=== PATIENT | female | born 1940 ===

== ENCOUNTER → 2020-02-10 13:50 | Outpatient (BNVA) | payer MEDICARE, BC, SELFPAY | PROVIDERS: PCP Internal Medicine; Referring Provider Internal Medicine; Visit Provider Physician Assistant | DX: I48.92 Unspecified atrial flutter (principal); Z45.018 Encounter for adjustment and management of other part of cardiac pacemaker; Z79.01 Long term (current) use of anticoagulants | CPT/HCPCS: 93280; 99201; 99202 ==

== ENCOUNTER 2021-06-14 14:33 | Outpatient (CLI) | payer MEDICARE, BC, SELFPAY ==
--- NOTE | 2021-06-14 14:45 | RT.EKG_ITS ---
APPROVED REPORT Exam: Resting ECG Reason for Exam: afib Patient Location: O HR:80 bpm ECG Measurements Heart Rate 80 AXIS [place] [id number] P [id number] QRSd 155 QRS -66 QT 473 T 83 QTc 546 Conclusion Afib/flut and V-paced complexes...other complexes, A-rate>240 No further analysis attempted due to paced rhythm
== END 2021-06-14 14:34 | disposition home or self-care (01) ==
LOC: DI.CARD 14:47
PROVIDERS: PCP Internal Medicine; Referring Provider Internal Medicine; Visit Provider Physician Assistant
DX: I48.20 Chronic atrial fibrillation, unspecified (principal)
CPT/HCPCS: 93010

== ENCOUNTER → 2021-06-14 14:33 | Outpatient (BNVA) | payer MEDICARE, BC, SELFPAY | PROVIDERS: PCP Internal Medicine; Referring Provider Internal Medicine; Visit Provider Physician Assistant | DX: Z95.0 Presence of cardiac pacemaker (principal); I48.20 Chronic atrial fibrillation, unspecified | CPT/HCPCS: 93005; 93280 ==

== ENCOUNTER → 2022-07-11 14:29 | Outpatient (BNVA) | payer MEDICARE, BC, SELFPAY | PROVIDERS: PCP Internal Medicine; Visit Provider Physician Assistant | DX: Z45.010 Encounter for checking and testing of cardiac pacemaker pulse generator [battery] (principal); Z79.01 Long term (current) use of anticoagulants; I48.20 Chronic atrial fibrillation, unspecified | CPT/HCPCS: 93280; 99212; 99213 ==

== ENCOUNTER 2024-07-15 07:59 | Outpatient (CLI) | payer MEDICARE, BC, SELFPAY ==
--- NOTE | 2024-07-15 07:45 | RT.EKG_ITS ---
APPROVED REPORT Exam: Resting ECG Reason for Exam: afib Patient Location: O HR:87 bpm ECG Measurements Heart Rate 87 AXIS TN [id number] P [id number] QRSd 157 QRS -72 QT 415 T 88 QTc 500 Conclusion Afib/flut and V-paced complexes...other complexes, A-rate>240 No further analysis attempted due to paced rhythm
== END 2024-07-15 08:00 | disposition home or self-care (01) ==
LOC: DI.CARD 07:59
PROVIDERS: PCP Family Medicine; Visit Provider Student in an Organized Health Care Education/Training Program
DX: I48.20 Chronic atrial fibrillation, unspecified (principal)
CPT/HCPCS: 93010

== ENCOUNTER → 2024-07-15 13:16 | Outpatient (BNVA) | payer MEDICARE, BC, SELFPAY | PROVIDERS: PCP Family Medicine; Referring Provider Family Medicine; Visit Provider Student in an Organized Health Care Education/Training Program | DX: I48.20 Chronic atrial fibrillation, unspecified (principal); Z45.018 Encounter for adjustment and management of other part of cardiac pacemaker; Z79.01 Long term (current) use of anticoagulants | CPT/HCPCS: 93280; 93005 ==